=== PATIENT | male | born 1955 | race Caucasian/White ===

== ENCOUNTER 2023-03-14 13:51 | Emergency (ER) | payer OTHER ==
[~2023-03-14] VITALS: Ht 177.8 cm; Wt 82.6 kg
== END 2023-03-14 15:10 | disposition home or self-care (01) ==
LOC: ED 13:51
DX: T83.038A Leakage of other urinary catheter, initial encounter (principal); Y84.8 Other medical procedures as the cause of abnormal reaction of the patient, or of later complication, without mention of misadventure at the time of the procedure; Y92.89 Other specified places as the place of occurrence of the external cause

== ENCOUNTER 2023-06-24 13:02 | Inpatient (IN) | payer OTHER ==
[~2023-06-24] VITALS: Ht 177.8 cm; Wt 83.0 kg
[2023-06-24 13:10] VITALS: BP 118/58
[2023-06-24 13:28] LABS: BASO % 0.5 % (0.0-1.0); EOS # 0.2 10*3/uL (0.0-0.4); EOS % 3.2 % (1.0-4.0); LYMPH # 1.8 10*3/uL (1.3-4.4); LYMPH % 26.8 % (27.0-41.0); MEAN CELL VOLUME 85.6 fl (80.0-94.0); MEAN CORPUSCULAR HGB CONC 36.2 g/dl (33.0-37.0); MEAN PLATELET VOLUME 10.1 fl (9.6-12.3); MONO # 0.5 10*3/uL (0.1-1.0); MONO % 6.9 % (3.0-9.0); NEUT # 4.1 10*3/uL (2.3-7.9); NEUT % 62.1 % (47.0-73.0); PLATELET COUNT AUTOMATED 144 10*3/uL (130-400); RED BLOOD COUNT 3.97 10*6/uL (4.50-5.90); RED CELL DISTRI WIDTH 14.8 % (0-14.5); WHITE BLOOD COUNT 6.6 10*3/uL (4.8-10.8)
[2023-06-24] MEDS ORDERED: ASPIRIN ADULT L81 M2 PO (13:42)
[2023-06-24] MEDS ORDERED: TYLOPHEN500 M2 PO (13:43)
[2023-06-24] MEDS ORDERED: LORAZEPAM0.5 M1 PO (13:44)
[2023-06-24] MEDS ORDERED: BENZTROPINE MESY1 MG PO (13:45)
[2023-06-24] MEDS ORDERED: ATORVASTATIN CA20 M1 PO (13:45)
[2023-06-24] MEDS ORDERED: ISOSORBIDE DINI30 MG PO (13:46)
[2023-06-24] MEDS ORDERED: METOPROLOL SUC100 M1 PO (13:47)
[2023-06-24] MEDS ORDERED: OXCARBAZEPINE150 MG PO (13:47)
[2023-06-24] MEDS ORDERED: LISINOPRIL40 MG PO (13:47)
[2023-06-24] MEDS ORDERED: PALIPERIDONE ER6 MG PO (13:48)
[2023-06-24] MEDS ORDERED: PALIPERIDONE ER3 MG PO (13:49)
[2023-06-24] MEDS ORDERED: TAMSULOSIN HCL0.4 MG PO (13:50)
[2023-06-24] MEDS ORDERED: INVEGA SUSTENN156 MG IM (13:52)
[2023-06-24] MEDS ORDERED: VITAMIN D350 MC2 PO (13:53)
[2023-06-24 14:06] LABS: BILIRUBIN Negative (Negative); BLOOD 1+ (Negative); CLARITY Turbid (Clear); COLOR Yellow (Yellow); GLUCOSE Negative (Negative); KETONE Negative (Negative); LEUKO ESTERASE 3+ (Negative); NITRITE Positive (Negative)
[2023-06-24 14:14] LABS: URINE AMPHETAMINES Negative (1000ng/ml); URINE BARBITURATES Negative (200ng/ml); URINE BENZODIAZEPINES Negative (200ng/ml); URINE CANNABINOIDS (THC) Negative (50ng/ml); URINE COCAINE Negative (300ng/ml); URINE METHADONE Negative (300ng/ml); URINE OPIATES Negative (300ng/ml); URINE PHENCYCLIDINE Negative (25ng/ml)
[2023-06-24 14:17] LABS: BACTERIA 3+; WBC TNTC wbc/hpf (0-5)
[2023-06-24 14:20] LABS: ALKALINE PHOSPHATASE 62 U/L (46-116); BUN 8 mg/dl (9-23); CHLORIDE 95 mmol/L (98-107); POTASSIUM 4.1 mmol/L (3.4-5.1); SGPT/ALT 21 U/L (5-49); TOTAL PROTEIN 5.9 gm/dL (6.0-8.0)
[2023-06-24 14:21] LABS: ETHYL ALCOHOL < 3.0 mg/dl (<3)
[2023-06-24 15:55] VITALS: BP 135/81
[2023-06-24 16:40] VITALS: BP 134/70
[2023-06-24 20:00] VITALS: BP 124/77
[2023-06-25] VITALS: BP 133/63
[2023-06-25 07:42] LABS: BASO % 0.4 % (0.0-1.0); EOS # 0.1 10*3/uL (0.0-0.4); EOS % 0.8 % (1.0-4.0); LYMPH # 1.6 10*3/uL (1.3-4.4); LYMPH % 19.5 % (27.0-41.0); MEAN CELL VOLUME 85.4 fl (80.0-94.0); MEAN CORPUSCULAR HGB 30.4 pg (27.0-31.0); MEAN CORPUSCULAR HGB CONC 35.6 g/dl (33.0-37.0); MONO # 0.6 10*3/uL (0.1-1.0); MONO % 6.9 % (3.0-9.0); NEUT % 71.8 % (47.0-73.0); PLATELET COUNT AUTOMATED 157 10*3/uL (130-400); RED CELL DISTRI WIDTH 14.7 % (0-14.5); WHITE BLOOD COUNT 8.4 10*3/uL (4.8-10.8)
[2023-06-25 08:00] VITALS: BP 140/82
[2023-06-25 08:19] LABS: BUN 6 mg/dl (9-23); CHLORIDE 96 mmol/L (98-107); POTASSIUM 3.7 mmol/L (3.4-5.1)
[2023-06-25] MEDS ORDERED: REMERON15 M2 PO (11:58)
[2023-06-25] MEDS ORDERED: OMNICEF300 MG PO (12:00)
== END 2023-06-25 14:30 | disposition home or self-care (01) | DRG 690 ==
LOC: ED 13:02 → EDHOLD 15:22 → 5E 15:22
PROVIDERS: Emergency Medicine; ADMIT Student in an Organized Health Care Education/Training Program; ATTEND Student in an Organized Health Care Education/Training Program
DX: N30.00 Acute cystitis without hematuria (principal); E87.1 Hypo-osmolality and hyponatremia; F33.9 Major depressive disorder, recurrent, unspecified; F17.210 Nicotine dependence, cigarettes, uncomplicated; D64.9 Anemia, unspecified; F41.9 Anxiety disorder, unspecified; E78.5 Hyperlipidemia, unspecified; T42.1X5A Adverse effect of iminostilbenes, initial encounter; F25.9 Schizoaffective disorder, unspecified; I25.10 Atherosclerotic heart disease of native coronary artery without angina pectoris; K21.9 Gastro-esophageal reflux disease without esophagitis; N40.0 Benign prostatic hyperplasia without lower urinary tract symptoms; I10 Essential (primary) hypertension; G40.909 Epilepsy, unspecified, not intractable, without status epilepticus; Z79.899 Other long term (current) drug therapy; Z79.82 Long term (current) use of aspirin; Z71.6 Tobacco abuse counseling; Y92.89 Other specified places as the place of occurrence of the external cause

== ENCOUNTER 2023-08-11 13:14 | Emergency (ER) | payer OTHER ==
[~2023-08-11] VITALS: Ht 177.8 cm; Wt 82.6 kg
[~2023-08-11 13:14] MED LIST: ASPIRIN ADULT L81 M2 PO; ATORVASTATIN CA20 M1 PO; BENZTROPINE MESY1 MG PO; INVEGA SUSTENN156 MG IM; ISOSORBIDE DINI30 MG PO; LISINOPRIL40 MG PO; LORAZEPAM0.5 M1 PO; METOPROLOL SUC100 M1 PO; OMNICEF300 MG PO; OXCARBAZEPINE150 MG PO; PALIPERIDONE ER3 MG PO; PALIPERIDONE ER6 MG PO; REMERON15 M2 PO; TAMSULOSIN HCL0.4 MG PO; TYLOPHEN500 M2 PO; VITAMIN D350 MC2 PO
== END 2023-08-11 14:23 | disposition home or self-care (01) ==
LOC: ED 13:14
DX: S01.81XA Laceration without foreign body of other part of head, initial encounter (principal); I10 Essential (primary) hypertension; I25.2 Old myocardial infarction; F41.9 Anxiety disorder, unspecified; F32.A Depression, unspecified; Z95.5 Presence of coronary angioplasty implant and graft; F17.200 Nicotine dependence, unspecified, uncomplicated; Y08.89XA Assault by other specified means, initial encounter; Y93.89 Activity, other specified; Y92.009 Unspecified place in unspecified non-institutional (private) residence as the place of occurrence of the external cause; Y99.8 Other external cause status

== ENCOUNTER 2023-08-30 10:43 | Inpatient (IN) | payer OTHER, MEDICARE ==
[~2023-08-30] VITALS: Wt 86.2 kg
[~2023-08-30 10:43] MED LIST changes: +ACETAMINOPHEN500 M4 PO; +ATIVAN0.5 MG PO; +CLONAZEPAM1 MG PO; +DOXYCYCLINE MO100 MG PO; +ECOTRIN81 M1 PO; +FLUVOXAMINE50 MG PO; +IMDUR SA30 MG PO; +INVEGA6 MG PO; -ISOSORBIDE DINI30 MG PO; +PREDNISONE50 MG PO; +VITAMIN D350 MCG PO; +[UNRECOGNIZED DRUG - OTHER] PO
[2023-08-30 10:59] VITALS: BP 98/66
[2023-08-30 11:21] LABS: BILIRUBIN Negative (Negative); BLOOD Negative (Negative); CLARITY Clear (Clear); COLOR Yellow (Yellow); GLUCOSE Negative (Negative); KETONE Negative (Negative); LEUKO ESTERASE Negative (Negative); NITRITE Negative (Negative); PH 6.5 (4.5-8.0); SPECIFIC GRAVITY <= 1.005 (1.001-1.030); UROBILINOGEN 0.2 E.U./dl (0.0-1.0)
[2023-08-30 11:27] LABS: URINE AMPHETAMINES Negative (1000ng/ml); URINE BARBITURATES Negative (200ng/ml); URINE BENZODIAZEPINES Negative (200ng/ml); URINE CANNABINOIDS (THC) Negative (50ng/ml); URINE COCAINE Negative (300ng/ml); URINE METHADONE Negative (300ng/ml); URINE OPIATES Negative (300ng/ml); URINE PHENCYCLIDINE Negative (25ng/ml)
[2023-08-30 11:29] LABS: EPITHELIAL CELLS 0-2; RBC 0-2 rbc/hpf (0-2); WBC 0-2 wbc/hpf (0-5)
[2023-08-30 11:37] LABS: BASO # 0.1 10*3/uL (0.0-0.1); BASO % 0.4 % (0.0-1.0); EOS # 0.3 10*3/uL (0.0-0.4); EOS % 1.9 % (1.0-4.0); HEMATOCRIT 37.6 % (42.0-52.0); LYMPH # 1.9 10*3/uL (1.3-4.4); LYMPH % 14.9 % (27.0-41.0); MEAN CELL VOLUME 93.5 fl (80.0-94.0); MEAN CORPUSCULAR HGB 30.6 pg (27.0-31.0); MEAN CORPUSCULAR HGB CONC 32.7 g/dl (33.0-37.0); MEAN PLATELET VOLUME 10.2 fl (9.6-12.3); MONO # 0.9 10*3/uL (0.1-1.0); MONO % 6.9 % (3.0-9.0); NEUT # 9.8 10*3/uL (2.3-7.9); NEUT % 75.1 % (47.0-73.0); PLATELET COUNT AUTOMATED 193 10*3/uL (130-400); RED BLOOD COUNT 4.02 10*6/uL (4.50-5.90); RED CELL DISTRI WIDTH 13.2 % (0-14.5)
[2023-08-30 11:48] LABS: ACT PARTIAL THROMBO TIME 29.1 SECONDS (20.0-32.1)
[2023-08-30 11:58] LABS: ALKALINE PHOSPHATASE 74 U/L (46-116); BUN 9 mg/dl (9-23); CHLORIDE 98 mmol/L (98-107); LIPASE 28 U/L (12-53); SGPT/ALT 33 U/L (5-49); TOTAL PROTEIN 6.3 gm/dL (6.0-8.0)
[2023-08-30 12:49] VITALS: BP 126/68
[2023-08-30 19:23] VITALS: BP 102/78
[2023-08-30 20:00] VITALS: BP 102/78
[2023-08-31 07:00] LABS: BASO # 0.1 10*3/uL (0.0-0.1); BASO % 0.4 % (0.0-1.0); EOS # 0.3 10*3/uL (0.0-0.4); HEMATOCRIT 38.6 % (42.0-52.0); LYMPH # 1.5 10*3/uL (1.3-4.4); LYMPH % 10.6 % (27.0-41.0); MEAN CORPUSCULAR HGB 30.1 pg (27.0-31.0); MEAN CORPUSCULAR HGB CONC 32.4 g/dl (33.0-37.0); MEAN PLATELET VOLUME 9.9 fl (9.6-12.3); MONO # 0.9 10*3/uL (0.1-1.0); MONO % 6.8 % (3.0-9.0); NEUT # 10.9 10*3/uL (2.3-7.9); NEUT % 79.5 % (47.0-73.0); PLATELET COUNT AUTOMATED 162 10*3/uL (130-400); RED BLOOD COUNT 4.15 10*6/uL (4.50-5.90); RED CELL DISTRI WIDTH 13.2 % (0-14.5); WHITE BLOOD COUNT 13.7 10*3/uL (4.8-10.8)
[2023-08-31 07:29] LABS: ALKALINE PHOSPHATASE 76 U/L (46-116); BUN 14 mg/dl (9-23); CHLORIDE 102 mmol/L (98-107); CHOLESTEROL 89 mg/dL (<200); LDL CHOLESTEROL 34 mg/dL (9-159); POTASSIUM 4.9 mmol/L (3.4-5.1); SGPT/ALT 27 U/L (5-49); TOTAL PROTEIN 6.3 gm/dL (6.0-8.0); TRIGLYCERIDES 77 mg/dl (<150)
[2023-08-31 07:42] VITALS: BP 128/84
[2023-08-31 13:58] LABS: BILIRUBIN Negative (Negative); BLOOD Negative (Negative); CLARITY Clear (Clear); COLOR Yellow (Yellow); GLUCOSE Negative (Negative); KETONE Negative (Negative); LEUKO ESTERASE Negative (Negative); NITRITE Negative (Negative); UROBILINOGEN 0.2 E.U./dl (0.0-1.0)
[2023-08-31 14:48] LABS: WBC 0-2 wbc/hpf (0-5)
[2023-08-31 20:00] VITALS: BP 108/52
[2023-09-01 07:47] VITALS: BP 140/59
[2023-09-01 20:00] VITALS: BP 108/58
[2023-09-02 07:29] VITALS: BP 137/75
[2023-09-02 12:45] VITALS: BP 88/56
[2023-09-02 13:42] VITALS: BP 118/74
[2023-09-02 20:00] VITALS: BP 115/77
[2023-09-03 08:10] VITALS: BP 121/87
[2023-09-03 09:14] LABS: BUN 21 mg/dl (9-23); CHLORIDE 103 mmol/L (98-107); POTASSIUM 4.6 mmol/L (3.4-5.1)
[2023-09-03 20:00] VITALS: BP 101/61
[2023-09-04 07:40] VITALS: BP 113/48
[2023-09-04 10:44] LABS: BASO # 0.1 10*3/uL (0.0-0.1); BASO % 0.5 % (0.0-1.0); EOS # 0.1 10*3/uL (0.0-0.4); EOS % 0.9 % (1.0-4.0); HEMATOCRIT 35.5 % (42.0-52.0); LYMPH # 1.1 10*3/uL (1.3-4.4); LYMPH % 8.7 % (27.0-41.0); MEAN CELL VOLUME 92.2 fl (80.0-94.0); MEAN CORPUSCULAR HGB 30.4 pg (27.0-31.0); MEAN PLATELET VOLUME 10.3 fl (9.6-12.3); MONO # 0.7 10*3/uL (0.1-1.0); MONO % 5.6 % (3.0-9.0); NEUT # 10.8 10*3/uL (2.3-7.9); NEUT % 83.8 % (47.0-73.0); PLATELET COUNT AUTOMATED 137 10*3/uL (130-400); RED BLOOD COUNT 3.85 10*6/uL (4.50-5.90); RED CELL DISTRI WIDTH 13.2 % (0-14.5); WHITE BLOOD COUNT 12.9 10*3/uL (4.8-10.8)
[2023-09-04 19:23] VITALS: BP 134/83
[2023-09-05 07:35] VITALS: BP 145/59
[2023-09-05 18:16] LABS: BILIRUBIN Negative (Negative); BLOOD Negative (Negative); CLARITY Clear (Clear); COLOR Yellow (Yellow); GLUCOSE Negative (Negative); KETONE Negative (Negative); LEUKO ESTERASE Negative (Negative); NITRITE Negative (Negative); PH 5.5 (4.5-8.0); SPECIFIC GRAVITY 1.015 (1.001-1.030); UROBILINOGEN 0.2 E.U./dl (0.0-1.0)
[2023-09-05 18:32] LABS: BACTERIA TRACE
[2023-09-05 19:14] VITALS: BP 116/75
[2023-09-06 07:28] VITALS: BP 144/62
[2023-09-06 20:00] VITALS: BP 126/74
[2023-09-07 07:48] VITALS: BP 149/77
[2023-09-07 20:00] VITALS: BP 145/71
[2023-09-08 07:42] LABS: BASO # 0.1 10*3/uL (0.0-0.1); BASO % 0.6 % (0.0-1.0); EOS # 0.4 10*3/uL (0.0-0.4); EOS % 4.1 % (1.0-4.0); HEMATOCRIT 39.4 % (42.0-52.0); LYMPH # 1.9 10*3/uL (1.3-4.4); LYMPH % 19.9 % (27.0-41.0); MEAN CELL VOLUME 92.1 fl (80.0-94.0); MEAN CORPUSCULAR HGB 30.4 pg (27.0-31.0); MEAN PLATELET VOLUME 10.4 fl (9.6-12.3); MONO # 0.7 10*3/uL (0.1-1.0); MONO % 7.5 % (3.0-9.0); NEUT # 6.5 10*3/uL (2.3-7.9); NEUT % 67.5 % (47.0-73.0); PLATELET COUNT AUTOMATED 144 10*3/uL (130-400); RED BLOOD COUNT 4.28 10*6/uL (4.50-5.90); RED CELL DISTRI WIDTH 13.2 % (0-14.5); WHITE BLOOD COUNT 9.6 10*3/uL (4.8-10.8)
[2023-09-08 08:00] VITALS: BP 143/75
[2023-09-08 08:03] LABS: BUN 14 mg/dl (9-23); CHLORIDE 105 mmol/L (98-107); POTASSIUM 4.6 mmol/L (3.4-5.1)
[2023-09-08 20:00] VITALS: BP 106/61
[2023-09-09 07:38] VITALS: BP 155/99
[2023-09-09 19:05] VITALS: BP 118/60
[2023-09-10 07:27] VITALS: BP 138/63
[2023-09-10 20:00] VITALS: BP 94/55
[2023-09-11 07:34] VITALS: BP 132/71
[2023-09-11 08:11] LABS: BASO # 0.1 10*3/uL (0.0-0.1); BASO % 0.4 % (0.0-1.0); EOS # 0.2 10*3/uL (0.0-0.4); EOS % 1.3 % (1.0-4.0); HEMATOCRIT 41.8 % (42.0-52.0); LYMPH % 7.7 % (27.0-41.0); MEAN CELL VOLUME 92.1 fl (80.0-94.0); MEAN CORPUSCULAR HGB 30.4 pg (27.0-31.0); MEAN PLATELET VOLUME 10.5 fl (9.6-12.3); MONO # 0.5 10*3/uL (0.1-1.0); MONO % 3.6 % (3.0-9.0); NEUT # 11.7 10*3/uL (2.3-7.9); NEUT % 86.7 % (47.0-73.0); PLATELET COUNT AUTOMATED 156 10*3/uL (130-400); RED BLOOD COUNT 4.54 10*6/uL (4.50-5.90); WHITE BLOOD COUNT 13.5 10*3/uL (4.8-10.8)
[2023-09-11 20:00] VITALS: BP 105/57
[2023-09-12 07:35] VITALS: BP 121/65
[2023-09-12] MEDS ORDERED: INVEGA SUSTENN234 MG IM (12:35)
[2023-09-12] MEDS ORDERED: FLUVOXAMINE100 MG PO (12:38)
[2023-09-12] MEDS ORDERED: CLOZARIL100 MG PO (12:42)
== END 2023-09-12 12:49 | disposition home or self-care (01) | DRG 885 ==
LOC: ED 10:43 → 3N 13:29
PROVIDERS: Emergency Medicine; Family Medicine; Nurse Practitioner; Registered Nurse; Student in an Organized Health Care Education/Training Program; ADMIT Psychiatry & Neurology Psychiatry; ATTEND Psychiatry & Neurology Psychiatry
DX: F25.1 Schizoaffective disorder, depressive type (principal); F23 Brief psychotic disorder; E87.1 Hypo-osmolality and hyponatremia; E44.1 Mild protein-calorie malnutrition; F42.9 Obsessive-compulsive disorder, unspecified; D50.9 Iron deficiency anemia, unspecified; I25.10 Atherosclerotic heart disease of native coronary artery without angina pectoris; F41.9 Anxiety disorder, unspecified; E78.5 Hyperlipidemia, unspecified; N40.0 Benign prostatic hyperplasia without lower urinary tract symptoms; J41.0 Simple chronic bronchitis; G40.909 Epilepsy, unspecified, not intractable, without status epilepticus; Z71.6 Tobacco abuse counseling; Z87.891 Personal history of nicotine dependence; Z68.23 Body mass index [BMI] 23.0-23.9, adult